=== PATIENT | female | born 1945 ===

== ENCOUNTER 2019-02-09 16:11 | Outpatient (REF) | payer MEDICARE, SELFPAY ==
[2019-02-09 22:10] LABS: ALT 73 U/L (12-78); AST 22 U/L (15-37); Albumin 3.9 g/dL (3.4-5.0); Alkaline Phosphatase 218 U/L (46-116); Bilirubin, Direct 0.15 mg/dL (0.00-0.20); Bilirubin, Total 0.4 mg/dL (0.2-1.0)
[2019-02-11 11:19] LABS: CA 19-9 17 U/mL (<35)
== END 2019-02-09 16:31 ==
LOC: NCHCN 16:11
PROVIDERS: PCP Family Medicine; Visit Provider Family Medicine
DX: C25.2 Malignant neoplasm of tail of pancreas (principal)
CPT/HCPCS: 80076; 86301